=== PATIENT | male | born 1970 | race Caucasian/White ===

== ENCOUNTER 2018-05-30 13:53 | Inpatient (IN) | payer OTHER ==
[~2018-05-30] VITALS: Ht 170.2 cm; Wt 71.4 kg
[2018-05-30 16:59] LABS: BASOPHIL % 0.9 % (0-2); PLATELET COUNT 187 x10^3mcL (130-400); RED CELL DISTRIBUTION WIDTH 13.2 % (11.5-14.5)
[2018-05-30 17:06] LABS: CALCIUM 8.7 mg/dL (8.5-10.1); CARBON DIOXIDE 28.2 mmol/L (21-32); CHLORIDE SERUM 103 mmol/L (98-107); CREATININE SERUM 0.9 mg/dL (0.7-1.3); GFR1 > 60 mL/min; GLUCOSE SERUM 101 mg/dL (74-106); POTASSIUM SERUM 3.6 mmol/L (3.5-5.1); SODIUM SERUM 141 mmol/L (136-145)
[2018-05-30 17:11] LABS: ALBUMIN 3.6 g/dL (3.4-5.0); ALKALINE PHOSPHATASE 101 U/L (46-116); ALT/SGPT 31 U/L (16-63); AST/SGOT 22 U/L (15-37); BILIRUBIN TOTAL 0.32 mg/dL (0.20-1.00); TOTAL PROTEIN, SERUM 6.8 g/dL (6.4-8.2)
[2018-05-30 18:39] LABS: PHOSPHOROUS 4.1 mg/dL (2.5-4.9)
[2018-05-30 18:41] LABS: CHOLESTEROL/HDL RATIO 4.2
[2018-05-30 18:45] LABS: T3 TOTAL 1.04 ng/mL
[2018-05-30 18:50] VITALS: BP 129/72
[2018-05-30 18:50] LABS: FREE T4 0.83 ng/dL (0.76-1.46); FREE THYROXINE INDEX 2.3 ug/dL (1.4-4.5); T4(THYROXINE) 6.2 ug/dL (4.7-13.3)
[2018-05-30 19:42] VITALS: Ht 170.2 cm; Wt 71.4 kg
[2018-05-30 21:32] VITALS: BP 114/64
[2018-05-31 05:53] VITALS: BP 105/64
[2018-05-31 06:17] LABS: CALCIUM 8.2 mg/dL (8.5-10.1); CARBON DIOXIDE 28.6 mmol/L (21-32); CHLORIDE SERUM 107 mmol/L (98-107); CREATININE SERUM 0.9 mg/dL (0.7-1.3); GFR1 > 60 mL/min; GLUCOSE SERUM 102 mg/dL (74-106); MAGNESIUM 1.9 mg/dL (1.8-2.4); PHOSPHOROUS 3.4 mg/dL (2.5-4.9); POTASSIUM SERUM 3.9 mmol/L (3.5-5.1); SODIUM SERUM 142 mmol/L (136-145)
[2018-05-31 06:28] LABS: PLATELET COUNT 180 x10^3mcL (130-400); RED CELL DISTRIBUTION WIDTH 13.3 % (11.5-14.5)
[2018-05-31 07:37] LABS: microscopic required? NO
[2018-05-31 07:47] LABS: UA SPECIFIC GRAVITY 1.015 (1.005-1.035); urine erythrocyte NEGATIVE (NEGATIVE)
[2018-05-31 08:17] LABS: AMPHETAMINE QUAL UR NONE DETECTED (See below)
[2018-05-31 09:24] VITALS: BP 110/61
[2018-05-31 13:30] VITALS: BP 105/61
[2018-05-31 14:40] VITALS: BP 105/61
== END 2018-05-31 16:42 | disposition home or self-care (01) | DRG 815 ==
LOC: ED 13:53 → DU 17:44
PROVIDERS: Emergency Medicine; General Practice
DX: T67.1XXA Heat syncope, initial encounter (principal); G90.8 Other disorders of autonomic nervous system; E78.5 Hyperlipidemia, unspecified; Z68.25 Body mass index [BMI] 25.0-25.9, adult; X58.XXXA Exposure to other specified factors, initial encounter; Y93.89 Activity, other specified; Y92.89 Other specified places as the place of occurrence of the external cause; Y99.8 Other external cause status
CPT/HCPCS: 83880; 84439; J7030; Q0092